=== PATIENT | male | born 1965 | race American Indian/Alaskan Native ===

== ENCOUNTER 2019-09-19 12:57 | Emergency (ER) | payer OTHER ==
[2019-09-19] MEDS ORDERED: ASPIRIN 325 MG TAB PO ONE (13:11)
--- NOTE | 2019-09-19 13:11 | Event Note ---
ED Screening Note Date of service: 09/19/19 Time: 13:09 ED Screening Note: 54 y o male presents with Chest pain left sided x today PMH: none This initial assessment/diagnostic orders/clinical plan/treatment(s) is/are subject to change based on patients health status, clinical progression and re- assessment by fellow clinical providers in the ED. Further treatment and workup at subsequent clinical providers discretion. Patient/guardian urged not to elope from the ED as their condition may be serious if not clinically assessed and managed. Initial orders include: labs main side eval
--- NOTE | 2019-09-19 13:42 | XRay Report ---
CHEST PA AND LATERAL VIEWS INDICATION: Chest Pain. COMPARISON: None. FINDINGS: Support devices: None. Heart: Within normal limits. Lungs/Pleura: Given low lung volumes, bibasilar reticular opacities may be atelectatic. Upper lungs a re clear. No pleural abnormalities. IMPRESSION: 1. Low lung volumes with presumed atelectatic changes in the bases. Signer Name: Domenico Natarajan MD Signed: 09/19/2019 1:37 PM Workstation Name: [id number]
[2019-09-19 13:47] LABS: Basophils # (Auto) 0.1 K/mm3 (0.0-0.1); Basophils % (Auto) 1.2 % (0.0-1.8); Eosinophils # (Auto) 0.1 K/mm3 (0.0-0.4); Hematocrit 46.4 % (35.5-45.6); Hemoglobin 15.3 gm/dl (11.8-15.2); Lymphocytes % (Auto) 26.6 % (13.4-35.0); Mean Corpuscular HGB Conc 33 % (32-34); Mean Corpuscular Volume 85 fl (84-94); Monocytes # (Auto) 0.4 K/mm3 (0.0-0.8); Monocytes % (Auto) 4.7 % (0.0-7.3); Platelet Count 287 K/mm3 (140-440); Red Blood Count 5.47 M/mm3 (3.65-5.03); Red Cell Distribution Width 13.9 % (13.2-15.2)
[2019-09-19 14:26] LABS: BUN/Creatinine Ratio 20; Blood Urea Nitrogen 10 mg/dL (9-20); Calcium 9.4 mg/dL (8.4-10.2); Hemolysis Index 7
[2019-09-19] MEDS ORDERED: IPRATROPIUM/ALBUTEROL SULFATE 3 ML AMPUL.NEB IH ONE (16:08)
--- NOTE | 2019-09-19 16:25 | Emergency Department Report ---
ED Chest Pain HPI - General Chief Complaint: Chest Pain Stated Complaint: CHEST PAIN, SOB TINGLY Time Seen by Provider: 09/19/19 15:50 Source: patient Mode of arrival: Ambulatory Limitations: No Limitations - History of Present Illness Initial Comments: 54-year-old male presents to the emergency department with a complaint of some left-sided chest pain that is been going on since noon. The pain has not resolved but has greatly improved without any medication or intervention. The patient also complains of some tingling or paresthesias to the arms from the elbow down since yesterday. It first started on the right side and then started on the left side today. He denies any past medical history. No primary care physician. He is a tobacco smoker but denies any illicit drug use. He denies any family history of any early cardiac disease or events. No recent travel or sick contacts at home. Severity scale (0 -10): 5 - Related Data Previous Rx's Medication Instructions Recorded Last Taken Type Albuterol INH(or & Nicu Only) 2 puff IH QID PRN #8.5 gram 09/19/19 Unknown Rx [ProAir HFA Inhaler] Allergies Allergy/AdvReac Type Severity Reaction Status Date / Time Sulfa (Sulfonamide Allergy Rash Verified 09/19/19 12:59 Antibiotics) Heart Score - HEART Score History: Slightly suspicious EKG: Normal Age: 45-65 Risk factors: 1-2 risk factors Troponin: < normal limit HEART Score: 2 - Critical Actions Critical Actions: 0-3 pts:0.9-1.7%risk of adverse cardiac event.Candidate for discharge ED Review of Systems ROS: Stated complaint: CHEST PAIN, SOB TINGLY Other details as noted in HPI Comment: All other systems reviewed and negative Constitutional: denies: chills, fever Eyes: denies: eye pain, eye discharge ENT: denies: ear pain, throat pain Respiratory: shortness of breath. denies: cough Cardiovascular: chest pain, palpitations Gastrointestinal: denies: abdominal pain, vomiting Genitourinary: denies: dysuria, discharge Musculoskeletal: denies: back pain, arthralgia Skin: denies: rash, lesions Neurological: paresthesias. denies: headache, numbness ED Past Medical Hx - Past Medical History Previous Medical History?: No - Surgical History Additional Surgical History: hernia surg - Social History Smoking Status: Current Every Day Smoker Substance Use Type: Alcohol - Medications Home Medications: Home Medications Medication Instructions Recorded Confirmed Last Taken Type Albuterol INH(or & Nicu Only) 2 puff IH QID PRN #8.5 gram 09/19/19 Unknown Rx [ProAir HFA Inhaler] ED Physical Exam - General Limitations: No Limitations - Other Other exam information: GENERAL: The patient is well-developed well-nourished. HENT: Normocephalic. Atraumatic. Patient has moist mucous membranes. EYES: Extraocular motions are intact. Pupils equal reactive to light bilaterally. NECK: Supple. Trachea is midline. CHEST/LUNGS: Mild expiratory wheezing. No tachypnea or accessory muscle use. There is no respiratory distress noted. HEART/CARDIOVASCULAR: Regular. There is no tachycardia. There is no murmur. ABDOMEN: Abdomen is soft, nontender. Patient has normal bowel sounds. SKIN: Skin is warm and dry. NEURO: The patient is awake, alert, and oriented. The patient is cooperative. The patient has no focal neurologic deficits. Normal speech. MUSCULOSKELETAL: There is no tenderness or deformity. There is no evidence of acute injury. ED Course Vital Signs 09/19/19 09/19/19 09/19/19 13:12 16:42 16:57 Temperature 98.5 F Pulse Rate 86 75 Pulse Rate [ 71 Bilateral] Respiratory 16 18 Rate Respiratory 15 Rate [Bilateral ] Blood Pressure 124/86 116/75 [Left] O2 Sat by Pulse 93 97 Oximetry 09/19/19 18:35 Temperature Pulse Rate 54 L Pulse Rate [ Bilateral] Respiratory 20 Rate Respiratory Rate [Bilateral ] Blood Pressure 121/91 [Left] O2 Sat by Pulse 93 Oximetry ELIZABETH score - Elizabeth Score Age > 65: (0) No Aspirin use within the Past 7 Days: (0) No 3 or more CAD Risk Factors: (0) No 2 or more Angina events in past 24 hrs: (1) Yes Known CAD with more than 50% Stenosis: (0) No Elevated Cardiac Markers: (0) No ST Deviation Greater than 0.5mm: (0) No ELIZABETH Score: 1 ED Medical Decision Making - Lab Data Result diagrams: 09/19/19 13:31 09/19/19 13:31 - EKG Data -: EKG Interpreted by Me EKG shows normal: sinus rhythm, axis, intervals (Prolonged GA interval), QRS complexes, ST-T waves Rate: normal - EKG Data When compared to previous EKG there are: previous EKG unavailable Interpretation: other (Sinus rhythm, prolonged GA interval, no ST elevation VA) - Radiology Data Radiology results: image reviewed interpreted by me: Chest x-ray does not show any acute process. There are no pleural effusions, obvious pneumonia and there is no pneumothorax. - Medical Decision Making This patient presents to the emergency department with some chest discomfort, palpitations, and shortness of breath that started earlier today around noon. At the time of my examination the patient is already improved without any intervention. Patient has some mild expiratory wheezing but otherwise does not have any acute or respiratory distress EKG does not show any signs of ST elevation VA or significant dysrhythmia. Patient's labs are unremarkable including negative troponins x2. Chest x-ray did not show any pleural effusions, pneumonia, pneumothorax, focal consolidation, or any other acute process. The patient was reevaluated multiple times over multiple hours and is greatly improved. He was seen resting comfortably multiple times. His chest pain is completely resolved. He has a low heart and ELIZABETH score. The patient also has a low Wells score. There is no tachycardia or hypoxia. He appears low suspicion for thromboembolic disease. He appears safe for discharge home at this time but he does meet criteria for close outpatient follow-up with cardiology. His contact information has been sent to [facility] and someone from their office should be contacting him shortly. In the meantime, the patient has been instructed to return to the emergency department with any worsening of his symptoms or with any acute distress. His vital signs been stable throughout his ED course. - Differential Diagnosis VA, PE, asthma, pneumonia Critical Care Time: No Critical care attestation.: If time is entered above; I have spent that time in minutes in the direct care of this critically ill patient, excluding procedure time. ED Disposition Clinical Impression: Palpitations Chest pain Qualifiers: Chest pain type: unspecified Qualified Code(s): R07.9 - Chest pain, unspecified Disposition: DC-01 TO HOME OR SELFCARE Is pt being admited?: No Condition: Stable Instructions: Chest Pain (ED) Additional Instructions: Please follow-up with a primary care physician in the next few days. I am sending your contact information over to [facility] and someone from their office should be contacting you in the next few days for close outpatient follow-up. Return to the emergency department with any worsening of your symptoms or any acute distress. Prescriptions: Albuterol INH(or & Nicu Only) [ProAir HFA Inhaler] 2 puff IH QID PRN #8.5 gram PRN Reason: Shortness Of Breath Referrals: PRIMARY CARE,MD [Primary Care Provider] - 2-3 Days [facility] [Provider Group] - 2-3 Days Time of Disposition: 18:33
[2019-09-19] MEDS ORDERED: ASPIRIN 325 MG TAB ONE (16:48)
[2019-09-19 18:36] VITALS: BP 121/91
== END 2019-09-19 18:35 | disposition home or self-care (01) ==
LOC: ED 12:57
DX: R00.2 Palpitations (principal); R07.9 Chest pain, unspecified; R06.02 Shortness of breath; F17.200 Nicotine dependence, unspecified, uncomplicated; Z98.890 Other specified postprocedural states; Z79.899 Other long term (current) drug therapy; Z88.2 Allergy status to sulfonamides
CPT/HCPCS: 36415; 71046; 80048; 84443; 84484; 85025; 93005; 93010; 94640; 94644